=== PATIENT | male | born 1970 | race Caucasian/White ===

== ENCOUNTER → 2017-12-30 | Outpatient (CLI) | payer OTHER ==
[~2017-12-30] MED LIST: SIMVASTATIN20 MG PO; TOBRADEX 0.1%-0.5 ML OPH
== END | disposition home or self-care (01) ==
LOC: RAD 07:38
DX: K22.8 Other specified diseases of esophagus (principal)

== ENCOUNTER → 2018-01-02 | Day surgery (SDC) | payer OTHER ==
[~2018-01-02] VITALS: Ht 170.1 cm; Wt 77.1 kg
[2018-01-02 09:08] VITALS: BP 136/74
[2018-01-02 10:47] VITALS: BP 118/87
[2018-01-02 11:02] VITALS: BP 133/95
[2018-01-02 11:17] VITALS: BP 126/88
== END | disposition home or self-care (01) ==
LOC: SDC 12-29 09:30
DX: K29.60 Other gastritis without bleeding (principal); K22.8 Other specified diseases of esophagus; K21.9 Gastro-esophageal reflux disease without esophagitis; E78.5 Hyperlipidemia, unspecified; Z87.891 Personal history of nicotine dependence; Z98.890 Other specified postprocedural states; Z79.899 Other long term (current) drug therapy

== ENCOUNTER → 2018-07-17 | Outpatient (CLI) | payer OTHER ==
[2018-07-17 08:00] LABS: ALBUMIN 3.9 gm/dl (3.1-4.5); ALKALINE PHOSPHATASE 65 U/L (45-117); BUN 10 mg/dl (7-24); CHLORIDE 105 mmol/L (98-107); CHOLESTEROL 166 mg/dL (<200); HDL CHOLESTEROL 61 mg/dl (40-60); LDL CHOLESTEROL 86 mg/dL (9-159); POTASSIUM 4.3 mmol/L (3.5-5.1); SGOT/AST 32 IU/L (3-35); SGPT/ALT 66 U/L (12-78); SODIUM 139 mmol/L (136-145); TOTAL PROTEIN 7.1 gm/dL (6.4-8.2); TRIGLYCERIDES 96 mg/dl (<150); VLDL CHOLESTEROL 19 mg/dL (6-40)
== END | disposition home or self-care (01) ==
LOC: LAB 07:02
PROVIDERS: Nurse Practitioner Family
DX: E78.5 Hyperlipidemia, unspecified (principal)

== ENCOUNTER → 2021-03-06 | Day surgery (SDC) | payer OTHER ==
[2021-03-03 14:39] VITALS: BP 137/82
[~2021-03-06] VITALS: Ht 172.7 cm; Wt 77.1 kg
[~2021-03-06] MED LIST changes: +COLACE100 MG PO; +PERCOCET 5-3251 EACH PO; +ZOFRAN4 MG PO
[2021-03-06 11:19] VITALS: BP 123/78
[2021-03-06 11:35] VITALS: BP 129/77
[2021-03-06 11:50] VITALS: BP 130/78
[2021-03-06 12:05] VITALS: BP 128/81
[2021-03-06 12:20] VITALS: BP 124/79
== END | disposition home or self-care (01) ==
LOC: SDC 03-02 14:00
PROVIDERS: ATTEND Surgery
DX: K40.30 Unilateral inguinal hernia, with obstruction, without gangrene, not specified as recurrent (principal); K21.9 Gastro-esophageal reflux disease without esophagitis; E78.5 Hyperlipidemia, unspecified; Z79.899 Other long term (current) drug therapy; Z20.822 Contact with and (suspected) exposure to COVID-19

== ENCOUNTER → 2021-08-17 | Day surgery (SDC) | payer OTHER ==
[~2021-08-17] VITALS: Ht 172.7 cm; Wt 77.1 kg
[~2021-08-17] MED LIST changes: +PEPCID20 MG PO; +PRILOSEC20 M1 PO; +PROZAC10 MG PO
[2021-08-17 07:35] VITALS: BP 133/82
[2021-08-17 09:18] VITALS: BP 149/93
[2021-08-17 09:33] VITALS: BP 156/95
[2021-08-17 09:48] VITALS: BP 151/85
[2021-08-17 09:55] VITALS: BP 154/85
== END | disposition home or self-care (01) ==
LOC: SDC 08-13 08:45
PROVIDERS: ATTEND Surgery
DX: K22.0 Achalasia of cardia (principal); K21.9 Gastro-esophageal reflux disease without esophagitis; Z79.899 Other long term (current) drug therapy

== ENCOUNTER → 2023-06-06 | Day surgery (SDC) | payer OTHER ==
[~2023-06-06] VITALS: Ht 172.7 cm; Wt 74.8 kg
[~2023-06-06] MED LIST changes: +Lactated Ringer's Solution 1,000 ML IV ONE; +Midazolam Hydrochloride 2 MG/2 ML VIAL IV ONE; +PROPOFOL 200 MG/20 ML VIAL IV ONE
[2023-06-06 11:13] VITALS: BP 126/81
[2023-06-06 13:08] VITALS: BP 134/85
[2023-06-06 13:23] VITALS: BP 108/73
[2023-06-06 13:38] VITALS: BP 115/73
== END | disposition home or self-care (01) ==
LOC: SDC 05-19 09:30
PROVIDERS: ATTEND Surgery
DX: Z12.11 Encounter for screening for malignant neoplasm of colon (principal); K64.0 First degree hemorrhoids; K21.9 Gastro-esophageal reflux disease without esophagitis; E78.00 Pure hypercholesterolemia, unspecified; F41.9 Anxiety disorder, unspecified; F10.90 Alcohol use, unspecified, uncomplicated; Z87.891 Personal history of nicotine dependence; Z98.890 Other specified postprocedural states; Z83.3 Family history of diabetes mellitus

== ENCOUNTER → 2023-07-22 | Outpatient (CLI) | payer OTHER ==
[~2023-07-22] MED LIST changes: -Lactated Ringer's Solution 1,000 ML IV ONE; -Midazolam Hydrochloride 2 MG/2 ML VIAL IV ONE; -PROPOFOL 200 MG/20 ML VIAL IV ONE
[2023-07-22 07:28] LABS: BASO % 0.7 % (0.0-1.0); EOS # 0.2 10*3/uL (0.0-0.4); EOS % 3.3 % (1.0-4.0); HEMATOCRIT 47.1 % (42.0-52.0); LYMPH # 1.5 10*3/uL (1.3-4.4); LYMPH % 24.6 % (27.0-41.0); MEAN CELL VOLUME 90.9 fl (80.0-94.0); MEAN CORPUSCULAR HGB 30.5 pg (27.0-31.0); MEAN CORPUSCULAR HGB CONC 33.5 g/dl (33.0-37.0); MEAN PLATELET VOLUME 10.6 fl (9.6-12.3); MONO # 0.5 10*3/uL (0.1-1.0); NEUT # 3.7 10*3/uL (2.3-7.9); NEUT % 62.1 % (47.0-73.0); PLATELET COUNT AUTOMATED 177 10*3/uL (130-400); RED BLOOD COUNT 5.18 10*6/uL (4.50-5.90); RED CELL DISTRI WIDTH 13.1 % (0-14.5)
[2023-07-22 07:53] LABS: ALKALINE PHOSPHATASE 76 U/L (46-116); BUN 8 mg/dl (9-23); CHLORIDE 103 mmol/L (98-107); CHOLESTEROL 197 mg/dL (<200); LDL CHOLESTEROL 124 mg/dL (9-159); POTASSIUM 4.4 mmol/L (3.4-5.1); SGPT/ALT 39 U/L (5-49); TOTAL PROTEIN 7.2 gm/dL (6.0-8.0); TRIGLYCERIDES 131 mg/dl (<150)
[2023-07-22 08:36] LABS: VITAMIN D, 25-HYDROXY 55.2 ng/mL (30-100)
== END | disposition home or self-care (01) ==
LOC: LAB 07:08
PROVIDERS: ATTEND Nurse Practitioner Family
DX: Z12.11 Encounter for screening for malignant neoplasm of colon (principal); Z12.12 Encounter for screening for malignant neoplasm of rectum; K22.0 Achalasia of cardia; E78.2 Mixed hyperlipidemia; E55.9 Vitamin D deficiency, unspecified